=== PATIENT | female | born 1965 | race Caucasian/White ===

== ENCOUNTER 2016-04-13 14:07 | Emergency (ER) | payer BC, SELFPAY | END 2016-04-13 15:20 | disposition left against medical advice (07) | LOC: BURERS 14:07 | DX: Z53.21 Procedure and treatment not carried out due to patient leaving prior to being seen by health care provider (principal) ==

== ENCOUNTER 2016-06-25 11:16 | Emergency (ER) | payer SELFPAY ==
--- NOTE | 2016-06-25 17:58 | RAD ---
RIGHT FOOT 4 VIEWS: Date: 06/25/16 A total of four views were provided. No fracture or periosteal reaction was seen. All bones appeared intact. A tiny calcaneal spur was merino ggested. IMPRESSION: No acute bony finding. POS: HOME
== END 2016-06-25 11:56 | disposition home or self-care (01) ==
LOC: BURERS 11:16
DX: S90.31XA Contusion of right foot, initial encounter (principal); I10 Essential (primary) hypertension; F41.9 Anxiety disorder, unspecified; Z79.899 Other long term (current) drug therapy; W55.19XA Other contact with horse, initial encounter

== ENCOUNTER 2016-10-22 08:26 | Emergency (ER) | payer SELFPAY ==
[2016-10-22 08:55] LABS: #Basophils 0.1 thou/uL (0.0-0.2); #Eosinphils 0.2 thou/uL (0.0-0.7); #Lymphocytes 1.7 thou/uL (1.20-3.40); #Monocytes 0.4 thou/uL (0.11-0.59); %Eosinophils 2.8 % (0.0-10.0); %Lymphocytes 23.1 % (21.0-51.0); %Monocytes 5.6 % (0.0-10.0); %Neutrophils 67.6 % (42.0-75.0); Hemoglobin 14.3 g/dL (12.0-16.0); Mean Corpuscular HGB CONC 33.8 g/dL (32.0-36.0); Mean Corpuscular Hemoglobin 31.1 pg (27.0-31.0); Mean Corpuscular Volume 92.1 fl (81.0-99.0); Mean Platelet Volume 10.7 fL (7.4-10.4); Platelet Count 215 thou/uL (130-400); RBC Distribution Width 11.6 % (11.5-14.5); White Blood Cell (WBC) Count 7.3 thou/uL (4.8-10.8)
[2016-10-22 09:11] LABS: ALT (SGPT) 9 U/L (8-55); AST (SGOT) 13 U/L (5-34); Albumin 4.3 g/dL (3.5-5.0); Alkaline Phosphatase 68 U/L (40-150); Anion Gap 13 mmol/L (10-20); BUN (Urea Nitrogen) 17 mg/dL (9.8-20.1); Bilirubin, Total 0.5 mg/dL (0.2-1.2); CK (CPK) 59 U/L (29-168); Calc. Creatinine Clearance 0 mL/min (70-130); Calcium 9.4 mg/dL (7.8-10.44); Carbon Dioxide 23 mmol/L (22-29); Chloride 108 mmol/L (98-107); Estimated GFR-MDRD 72; Globulin 2.7 g/dL (2.4-3.5); Glucose 103 mg/dL (70-105); Lipase 33 U/L (8-78); Potassium 4.3 mmol/L (3.5-5.1); Sodium 140 mmol/L (136-145)
[2016-10-22 09:13] LABS: CKMB 0.9 ng/mL (0-6.6); Troponin I Less than 0.010 ng/mL (< 0.028)
[2016-10-22] MEDS ORDERED: HYDROcodone/Acetaminophen 10/325 mg Tablet ONE (09:13)
--- NOTE | 2016-10-22 11:50 | RAD ---
PORTABLE CHEST: Date: 10-22-16 An AP portable film at 0841 is compared with a 06-21-09 study. FINDINGS: The heart size is unchanged. There is no vascular congestion, edema, or pleural effusion. The lungs are clear. The mediastinum is unremarkable. IMPRESSION: No acute thoracic finding. POS: HOME
== END 2016-10-22 10:21 | disposition home or self-care (01) ==
LOC: BURERS 08:26
DX: S13.4XXA Sprain of ligaments of cervical spine, initial encounter (principal); I10 Essential (primary) hypertension; F41.9 Anxiety disorder, unspecified; F32.9 Major depressive disorder, single episode, unspecified; Z87.891 Personal history of nicotine dependence; Z79.899 Other long term (current) drug therapy; X58.XXXA Exposure to other specified factors, initial encounter
CPT/HCPCS: 71010; 80053; 82553; 83690; 84484; 85025; 93005; 94760

== ENCOUNTER 2016-10-22 19:30 | Emergency (ER) | payer SELFPAY ==
[2016-10-22] MEDS ORDERED: Prochlorperazine 10 MG/2 ML VIAL ONE (20:03)
[2016-10-22] MEDS ORDERED: Ondansetron HCl/PF 4 MG/2 ML Vial ONE (22:49)
== END 2016-10-22 23:12 | disposition home or self-care (01) ==
LOC: BURERS 19:30
DX: M43.6 Torticollis (principal); I10 Essential (primary) hypertension; I25.2 Old myocardial infarction; F32.9 Major depressive disorder, single episode, unspecified; F41.9 Anxiety disorder, unspecified; Z87.891 Personal history of nicotine dependence; Z79.899 Other long term (current) drug therapy; Z79.891 Long term (current) use of opiate analgesic
CPT/HCPCS: 96374; 96375; J0780; J2270; J2405

== ENCOUNTER 2017-04-05 08:22 | Emergency (ER) | payer SELFPAY ==
[2017-04-05] MEDS ORDERED: Ondansetron HCl/PF 4 MG/2 ML Vial ONE (08:55)
[2017-04-05] MEDS ORDERED: Famotidine In NaCl 20 mg/50 ml Premix Bag ONE (08:55)
[2017-04-05 09:05] LABS: #Basophils 0.1 thou/uL (0.0-0.2); #Lymphocytes 0.6 thou/uL (1.20-3.40); #Monocytes 0.6 thou/uL (0.11-0.59); #Neutrophils 7.7 thou/uL (1.40-6.50); %Basophils 1.3 % (0.0-1.0); %Lymphocytes 6.9 % (21.0-51.0); %Monocytes 6.7 % (0.0-10.0); Hemoglobin 13.7 g/dL (12.0-16.0); Mean Corpuscular Hemoglobin 30.8 pg (27.0-31.0); Mean Platelet Volume 7.6 fL (7.4-10.4); Platelet Count 234 thou/uL (130-400); Red Blood Cell (RBC) Count 4.43 mill/uL (4.20-5.40); White Blood Cell (WBC) Count 9.1 thou/uL (4.8-10.8)
[2017-04-05 09:16] LABS: ALT (SGPT) 22 U/L (8-55); AST (SGOT) 23 U/L (5-34); Albumin 4.3 g/dL (3.5-5.0); Alkaline Phosphatase 78 U/L (40-150); Anion Gap 16 mmol/L (10-20); BUN (Urea Nitrogen) 13 mg/dL (9.8-20.1); Bilirubin, Total 0.5 mg/dL (0.2-1.2); Calc. Creatinine Clearance 0 mL/min (70-130); Calcium 9.3 mg/dL (7.8-10.44); Carbon Dioxide 24 mmol/L (22-29); Chloride 102 mmol/L (98-107); Estimated GFR-MDRD 61; Globulin 3.1 g/dL (2.4-3.5); Glucose 116 mg/dL (70-105); Lipase 28 U/L (8-78); Potassium 3.6 mmol/L (3.5-5.1); Protein, Total 7.4 g/dL (6.0-8.3); Sodium 138 mmol/L (136-145)
[2017-04-05] MEDS ORDERED: Acetaminophen 325 MG TAB ONE (09:16)
[2017-04-05] MEDS ORDERED: Ibuprofen 200 MG TAB ONE (09:36)
== END 2017-04-05 09:41 | disposition home or self-care (01) ==
LOC: BURERS 08:22
DX: B34.9 Viral infection, unspecified (principal); I10 Essential (primary) hypertension; Z87.891 Personal history of nicotine dependence
CPT/HCPCS: 80053; 83690; 85025; 96365; 96375; J2405

== ENCOUNTER 2017-07-06 22:13 | Emergency (ER) | payer OTHER, SELFPAY ==
[2017-07-06] MEDS ORDERED: Ketorolac Tromethamine 60 MG/2 ML VIAL ONE (22:25)
[2017-07-06] MEDS ORDERED: Ondansetron ODT 4 MG TAB ONE (22:28)
--- NOTE | 2017-07-07 07:21 | RAD ---
LEFT RIBS WITH PA CHEST: DATE: 07/06/17. FINDINGS: Comparison is made with a 06/24/17 study done at [facility]. The heart size is stable. There is no congestion or pleural effusion. At most, there might be a lit tle linear atelectasis in the right base. Regarding the left ribs, no fracture or area of bony destr uction was seen. There is no pneumothorax. IMPRESSION: No acute finding. POS: HOME
== END 2017-07-06 23:10 | disposition home or self-care (01) ==
LOC: BURERS 22:13
DX: R07.89 Other chest pain (principal); I10 Essential (primary) hypertension; Z87.891 Personal history of nicotine dependence
CPT/HCPCS: 96372; J1885; Q0162

== ENCOUNTER 2018-08-21 09:44 | Emergency (ER) | payer BC, SELFPAY ==
[~2018-08-21 09:44] MED LIST: Iopamidol 370 76% 100 ML VIAL ONE
[2018-08-21] MEDS ORDERED: Ondansetron ODT 4 MG TAB ONE (10:10)
[2018-08-21] MEDS ORDERED: Lidocaine 1% PF 5 ML VIAL ONE (10:33)
[2018-08-21 10:36] LABS: Clarity Slightly Cloudy (Clear)
[2018-08-21 10:37] LABS: Bilirubin Small (Negative); Blood, Urine Moderate (Negative); Glucose, Urine (Dipstick) Negative (Negative); Leukocyte Moderate (Negative); Nitrite Negative (Negative); Protein, Urine (Dipstick) 30 mg/dL (Neg-Trace)
[2018-08-21 10:44] LABS: #Eosinphils 0.1 thou/uL (0.0-0.7); #Lymphocytes 1.3 thou/uL (1.20-3.40); #Monocytes 0.4 thou/uL (0.11-0.59); #Neutrophils 5.8 thou/uL (1.40-6.50); %Basophils 0.5 % (0.0-1.0); %Eosinophils 1.7 % (0.0-10.0); %Monocytes 5.4 % (0.0-10.0); %Neutrophils 75.4 % (42.0-75.0); Hemoglobin 13.3 g/dL (12.0-16.0); Mean Corpuscular HGB CONC 31.6 g/dL (32.0-36.0); Mean Corpuscular Hemoglobin 29.7 pg (27.0-31.0); Mean Platelet Volume 11.2 fL (7.4-10.4); Platelet Count 231 thou/uL (130-400); RBC Distribution Width 11.7 % (11.5-14.5); Red Blood Cell (RBC) Count 4.47 mill/uL (4.20-5.40); White Blood Cell (WBC) Count 7.6 thou/uL (4.8-10.8)
[2018-08-21] MEDS ORDERED: Fentanyl 100 MCG/2 ML VIAL ONE ×2 (10:44→11:08)
[2018-08-21 10:58] LABS: ALT (SGPT) 13 U/L (8-55); AST (SGOT) 12 U/L (5-34); Albumin 4.4 g/dL (3.5-5.0); Alkaline Phosphatase 62 U/L (40-150); Anion Gap 15 mmol/L (10-20); BUN (Urea Nitrogen) 11 mg/dL (9.8-20.1); Bilirubin, Total 0.7 mg/dL (0.2-1.2); Calc. Creatinine Clearance 0 mL/min (70-130); Calcium 9.6 mg/dL (7.8-10.44); Carbon Dioxide 24 mmol/L (22-29); Chloride 106 mmol/L (98-107); Estimated GFR-MDRD 61; Globulin 2.6 g/dL (2.4-3.5); Glucose 111 mg/dL (70-105); Lipase 57 U/L (8-78); Potassium 3.5 mmol/L (3.5-5.1); Sodium 141 mmol/L (136-145)
[2018-08-21 11:03] LABS: Bacteria/HPF 3+ HPF (None Seen); Crystals/HPF None Seen HPF (Negative); Hyaline Casts/LPF NONE SEEN LPF (0-3 Hyaline); Other Casts/LPF None Seen LPF (0-3 Hyaline); Oval Fat Bodies/HPF 1+ HPF (None Seen); Renal Epithelial None Seen HPF (0-3); Sperm/HPF None Seen HPF (None Seen); Squamous Epithelial 0-3 HPF (0-3); Transitional Epithelial NONE SEEN HPF (0-3); Trichomonas/HPF None Seen HPF (None Seen); Yeast-All Forms None Seen HPF (None Seen)
[2018-08-21] MEDS ORDERED: Phenazopyridine HCl 97.5 MG TABLET ONE (11:08)
[2018-08-21] MEDS ORDERED: Dicyclomine 20 MG TAB ONE (11:08)
[2018-08-21] MEDS ORDERED: Ketamine 50 MG/ML (10ML VIAL) ONE (11:30)
[2018-08-21] MEDS ORDERED: Ketorolac Tromethamine 30 MG/ML VIAL ONE (11:31)
[2018-08-21] MEDS ORDERED: Ondansetron PF 4 MG/2 ML Vial ONE (11:31)
--- NOTE | 2018-08-21 17:58 | CT ---
CT ABDOMEN AND PELVIS WITH CONTRAST: 08/21/[address] of the abdomen and pelvis was done for evaluation of abdominal pain. IV contrast was given but oral was withheld. There is a history of recent gastric surgery. The lung bases are clear except for some dependent atelectasis. The spleen was generous in size but s till upper normal at 13.4 cm in length. Some of the intrahepatic bile ducts are a little prominent b ut probably still acceptable given that this is a post cholecystectomy patient. The pancreas and adre nal glands and aorta all appear normal. There is mild right hydronephrosis and hydroureter down to the low pelvic level. There is a 3 mm calc ification in or near the left ureter. Given the mild hydronephrosis, I suspect it is in it and this i s a small distal ureteral calculus. It is about 2 to 3 cm shy of the UV junction. The kidneys otherwi se are unremarkable. The bowel shows no distention, bowel wall thickening or other inflammatory changes. No free air or fr ee fluid was seen in the upper abdomen. CT of the pelvis was remarkable for the small calcification noted. Sigmoid diverticulosis without div erticulitis is seen. A trace of fluid is seen in the pelvis on the right that could be related to her being recently postop. IMPRESSION: 1. Mild left hydronephrosis and hydroureter. This is probably due to a small 3 mm distal uretera l calculus a few centimeters shy of the left UVJ. 2. Sigmoid diverticulosis. 3. Trace of fluid in the pelvis, probably related to recent surgery. 4. Unremarkable appearance around the operative bed of the stomach. No acute findings here. 5. Spleen upper normal size. POS: HOME
== END 2018-08-21 12:10 | disposition short-term general hospital (02) ==
LOC: BURERS 09:44
DX: N13.2 Hydronephrosis with renal and ureteral calculous obstruction (principal); N39.0 Urinary tract infection, site not specified; Z87.891 Personal history of nicotine dependence
CPT/HCPCS: 36415; 51702; 74177; 80053; 81003; 81015; 83605; 83690; 85025; 87077; 87086; 87186; 96361; 96365; 96372; 96375; J1885; J1956; J2001; J2270; J2405; J3010; Q0162; Q9967

== ENCOUNTER 2019-07-15 22:24 | Emergency (ER) | payer BC, SELFPAY ==
[2019-07-15] MEDS ORDERED: Famotidine In NaCl 20 mg/50 ml Premix Bag ONE (23:19)
[2019-07-15] MEDS ORDERED: Ondansetron PF 4 MG/2 ML Vial ONE (23:19)
[2019-07-15] MEDS ORDERED: Fentanyl 100 MCG/2 ML VIAL ONE (23:19)
[2019-07-15 23:32] LABS: Bilirubin Negative (Negative); Blood, Urine Negative (Negative); Clarity Cloudy (Clear); Glucose, Urine (Dipstick) Negative (Negative); Leukocyte Trace (Negative); Nitrite Positive (Negative); Protein, Urine (Dipstick) Trace mg/dL (Neg-Trace); Urobilinogen 0.2 mg/dL (Less than 2)
[2019-07-15 23:35] LABS: #Basophils 0.1 thou/uL (0.0-0.2); #Eosinphils 0.4 thou/uL (0.0-0.7); #Lymphocytes 1.6 thou/uL (1.20-3.40); #Monocytes 0.4 thou/uL (0.11-0.59); #Neutrophils 3.3 thou/uL (1.40-6.50); %Basophils 0.9 % (0.0-1.0); %Eosinophils 7.1 % (0.0-10.0); %Lymphocytes 27.3 % (21.0-51.0); %Monocytes 7.5 % (0.0-10.0); %Neutrophils 57.2 % (42.0-75.0); Hemoglobin 12.4 g/dL (12.0-16.0); Mean Corpuscular Hemoglobin 30.4 pg (27.0-31.0); Mean Corpuscular Volume 95.1 fL (78.0-98.0); Mean Platelet Volume 10.8 fL (7.4-10.4); Platelet Count 160 thou/uL (130-400); RBC Distribution Width 11.4 % (11.5-14.5); Red Blood Cell (RBC) Count 4.07 mill/uL (4.20-5.40); White Blood Cell (WBC) Count 5.8 thou/uL (4.8-10.8)
[2019-07-15 23:48] LABS: ALT (SGPT) 13 U/L (8-55); AST (SGOT) 14 U/L (5-34); Albumin 4.2 g/dL (3.5-5.0); Alkaline Phosphatase 58 U/L (40-110); Anion Gap 14 mmol/L (10-20); BUN (Urea Nitrogen) 15 mg/dL (9.8-20.1); Bilirubin, Total 0.5 mg/dL (0.2-1.2); Calc. Creatinine Clearance 0 mL/min (70-130); Calcium 9.2 mg/dL (7.8-10.44); Carbon Dioxide 27 mmol/L (22-29); Chloride 106 mmol/L (98-107); Estimated GFR-MDRD 68; Glucose 84 mg/dL (70-105); Lipase 32 U/L (8-78); Potassium 3.7 mmol/L (3.5-5.1); Protein, Total 6.2 g/dL (6.0-8.3); Sodium 143 mmol/L (136-145)
[2019-07-15 23:56] LABS: Bacteria/HPF 3+ HPF (None Seen); Calcium Oxalate Crystals 1+ HPF (None Seen); RBC/HPF 0-3 HPF (0-3); Squamous Epithelial 0-3 HPF (0-3); WBC/HPF 0-3 HPF (0-3)
--- NOTE | 2019-07-16 07:49 | CT ---
PRELIMINARY REPORT/[facility]/EMERGENCY AFTER HOURS PROCEDURE: EXAM: CT Abdomen and Pelvis with Intravenous Contrast CLINICAL HISTORY: PT HX OF GASTRIC BYPASS X 11MONTHS AGO, ABD PAIN, PT HAS HX OF GERD, PT HAS NORMAL LABS, PT HAS CONST IPATION TECHNIQUE: Axial computed tomography images of the abdomen and pelvis with intravenous contrast. CONTRAST: With; iso 370 95ml COMPARISON: None provided. FINDINGS: LUNG BASES: No basilar airspace consolidation or pleural effusion. LIVER: Unremarkable. GALLBLADDER AND BILE DUCTS: Cholecystectomy clips in the gallbladder fossa. No ductal dilation. PANCREAS: Unremarkable. SPLEEN: Unremarkable. ADRENAL GLANDS: Unremarkable. KIDNEYS, URETERS, AND BLADDER: Unremarkable. No hydronephrosis or nephrolithiasis. No ureteral or bladder calculi. STOMACH AND BOWEL: Seizures along the stomach and proximal small bowel. No obstruction. Wall thickening of multiple sm all bowel loops including the distal small bowel with adjacent fat stranding. No CT evidence of colit is or acute diverticulitis. Colonic diverticulosis. APPENDIX: No CT evidence for appendicitis. PERITONEUM: Small amount of free fluid in the pelvis. No free air. LYMPH NODES: No lymphadenopathy. REPRODUCTIVE: The uterus and ovaries are absent. VASCULATURE: No aortic aneurysm. BONES: No fracture or suspicious osseous abnormality. Multilevel degenerative disease. 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 ABDOMINAL WALL AND SOFT TISSUES: Unremarkable. IMPRESSION: Wall thickening of the multiple small bowel loops including the distal small bowel with adjacent fat stranding concerning for an infectious or inflammatory enteritis. Small amount of nonspecific free fluid in the pelvis. Colonic diverticulosis with no evidence of diverticulitis. Postsurgical changes related to a prior gastric bypass. ELECTRONICALLY SIGNED BY: Tariq Verdin MD July 16, 2019 12:27:44 AM CDT This report is intended for review by the ordering physician only, in accordance of law. If you recei ve this report in error, please call [facility] at [phone]. FINAL REPORT CT ABDOMEN AND PELVIS WITH CONTRAST: Date: 07/16/[address] of the abdomen and pelvis was done for evaluation of abdominal pain. The lung bases are clear. The liver, spleen, and pancreas show no space-occupying disease. There has been a prior cholecystectomy. The common bile duct is borderline in size measuring about 1.2 cm in [facility]. Normally, 1.0 cm is considered the upper normal in a post cholecystectomy patient. Some of the i ntrahepatic ducts are somewhat prominent in size, but the bile duct appears to go all the way to the duodenum without stoppage. The kidneys and adrenal glands were unremarkable. The abdominal aorta show ed no aneurysm. A prior gastric bypass is noted. No free air or free fluid is present. There is no distention of debbie l to suggest obstruction. The amount of fecal material in the colon is mildly increased at most, but not really remarkable. Some of the loops of small bowel seem to have orozco that are mildly thickened. This can sometimes be a sign of enteritis. CT of the pelvis shows no pelvic masses, fluid collections, or obvious inflammatory changes. No acute changes are seen in the lumbar spine. IMPRESSION: 1. Mild prominence of small bowel thickness. The possibility of enteritis should be considered. 2. Borderline size of common bile duct in this post cholecystectomy patient. Correlate with appropri ate labs. Report in agreement with preliminary reading by [facility]. POS: HOME
== END 2019-07-16 00:48 | disposition home or self-care (01) ==
LOC: BURERS 22:24
DX: A08.4 Viral intestinal infection, unspecified (principal); K57.30 Diverticulosis of large intestine without perforation or abscess without bleeding; R11.0 Nausea; Z87.891 Personal history of nicotine dependence
CPT/HCPCS: 74177; 80053; 81003; 81015; 83690; 85025; 87077; 87086; 87186; 94760; 96361; 96365; 96375; J2405; J3010; Q9967

== ENCOUNTER 2019-07-18 01:22 | Emergency (ER) | payer SELFPAY ==
[2019-07-18] MEDS ORDERED: Lidocaine Viscous Sol 2% 15 ml UD Cup ONE (02:03)
[2019-07-18] MEDS ORDERED: Mag-Al Plus 1200 MG/1200 MG/120 MG/30 ML UDCUP ONE (02:03)
[2019-07-18] MEDS ORDERED: Ondansetron ODT 4 MG TAB ONE (02:03)
[2019-07-18] MEDS ORDERED: Thiamine HCl 200 MG/2 ML VIAL ONE (02:29)
[2019-07-18] MEDS ORDERED: Ciprofloxacin Lactate/D5W 400 mg/200 ml Premix ONE (02:29)
[2019-07-18] MEDS ORDERED: Ondansetron PF 4 MG/2 ML Vial ONE (04:03)
== END 2019-07-18 05:20 | disposition home or self-care (01) ==
LOC: BURERS 01:22
DX: N39.0 Urinary tract infection, site not specified (principal); R19.7 Diarrhea, unspecified
CPT/HCPCS: 96365; 96367; 96375; J0744; J2405; J3411; Q0162

== ENCOUNTER 2019-10-18 14:52 | Emergency (ER) | payer OTHER, SELFPAY ==
[2019-10-18] MEDS ORDERED: Morphine 4 MG/ML VIAL ONE (14:57)
[2019-10-18] MEDS ORDERED: Morphine 2 MG/ML SYRINGE ONE (14:57)
[2019-10-18] MEDS ORDERED: Bacitracin 1 PK ONE (15:19)
== END 2019-10-18 15:39 | disposition home or self-care (01) ==
LOC: BURERS 14:52
DX: T23.102A Burn of first degree of left hand, unspecified site, initial encounter (principal); T31.0 Burns involving less than 10% of body surface; X17.XXXA Contact with hot engines, machinery and tools, initial encounter
CPT/HCPCS: 16000; 96372; J2270

== ENCOUNTER 2020-01-03 22:12 | Emergency (ER) | payer OTHER ==
[~2020-01-03 22:12] MED LIST changes: +Iopamidol 370 76% 50 ML VIAL FS ONE
[2020-01-03] MEDS ORDERED: Ondansetron PF 4 MG/2 ML Vial ONE ×2 (22:42→23:16)
[2020-01-03] MEDS ORDERED: Pantoprazole 40 MG VIAL ONE (22:51)
[2020-01-03 23:00] LABS: #Basophils 0.1 thou/uL (0.0-0.2); #Eosinphils 0.2 thou/uL (0.0-0.7); #Lymphocytes 1.6 thou/uL (1.20-3.40); #Monocytes 0.4 thou/uL (0.11-0.59); #Neutrophils 5.1 thou/uL (1.40-6.50); %Basophils 0.9 % (0.0-1.0); %Eosinophils 2.3 % (0.0-10.0); %Lymphocytes 21.5 % (21.0-51.0); %Monocytes 5.8 % (0.0-10.0); %Neutrophils 69.4 % (42.0-75.0); Mean Corpuscular Hemoglobin 31.8 pg (27.0-31.0); Mean Corpuscular Volume 96.4 fL (78.0-98.0); Mean Platelet Volume 9.6 fL (7.4-10.4); Platelet Count 201 thou/uL (130-400); Red Blood Cell (RBC) Count 4.09 mill/uL (4.20-5.40); White Blood Cell (WBC) Count 7.3 thou/uL (4.8-10.8)
[2020-01-03 23:15] LABS: ALT (SGPT) 27 U/L (8-55); AST (SGOT) 20 U/L (5-34); Alkaline Phosphatase 54 U/L (40-110); Anion Gap 15 mmol/L (10-20); BUN (Urea Nitrogen) 15 mg/dL (9.8-20.1); Bilirubin, Total 0.6 mg/dL (0.2-1.2); Calc. Creatinine Clearance 0 mL/min (70-130); Carbon Dioxide 26 mmol/L (22-29); Chloride 104 mmol/L (98-107); Globulin 2.1 g/dL (2.4-3.5); Glucose 111 mg/dL (70-105); Lipase 41 U/L (8-78); Potassium 3.9 mmol/L (3.5-5.1); Protein, Total 6.1 g/dL (6.0-8.3); Sodium 141 mmol/L (136-145)
[2020-01-03] MEDS ORDERED: Morphine 2 MG/ML SYRINGE ONE (23:59)
--- NOTE | 2020-01-04 07:05 | CT ---
PRELIMINARY REPORT/[facility]/EMERGENCY AFTER HOURS PROCEDURE: EXAM: CT Abdomen and Pelvis with Intravenous Contrast CLINICAL HISTORY: ABD PAIN, N/V THAT STARTED TODAY, PT HAS HX OF GASTRIC BYPASS TECHNIQUE: Axial computed tomography images of the abdomen and pelvis with intravenous contrast. CONTRAST: With; ISO 370, 100mL COMPARISON: 07/16/2019 FINDINGS: LUNG BASES: No basilar airspace consolidation or pleural effusion. LIVER: Unremarkable. GALLBLADDER AND BILE DUCTS: Unremarkable. No calcified stone. No ductal dilation. PANCREAS: Unremarkable. SPLEEN: Unremarkable. ADRENAL GLANDS: Unremarkable. KIDNEYS, URETERS, AND BLADDER: Unremarkable. No hydronephrosis or nephrolithiasis. No ureteral or bladder calculi. STOMACH AND BOWEL: There are postoperative changes of gastric bypass. There is significant distention of the efferent l oop consistent with obstruction. There is considerable fecal content within the distended small debbie l. There is a general transition zone in the left mid abdomen. There is diverticulosis. APPENDIX: No CT evidence for appendicitis. PERITONEUM: No free fluid. No free air. LYMPH NODES: No lymphadenopathy. REPRODUCTIVE: Unremarkable as visualized. VASCULATURE: No aortic aneurysm. BONES: No fracture or suspicious osseous abnormality. ABDOMINAL WALL AND SOFT TISSUES: Unremarkable. IMPRESSION: Postoperative changes of gastric bypass with obstruction of the efferent loop ELECTRONICALLY SIGNED BY: Rossana Kruger D.O. Jan 04, 2020 12:20:41 AM DIETITIAN ASSISTANT This report is intended for review by the ordering physician only, in accordance of law. If you recei ve this report in error, please call [facility] at [phone]. FINAL REPORT CT ABDOMEN AND PELVIS WITH CONTRAST: Date: 01/03/[address] of the abdomen and pelvis was done with IV contrast for evaluation of nausea, vomiting, and pain in this patient who has had a prior gastric bypass. Comparison is made with the prior CT dated 07/16/2019. Today's exam is significant markedly distended loops of proximal small bowel beyond the gastric bypas s. Some are measuring up to 4.0 cm in width and appear to have fecal material within them. The bowel remains dilated to about the left mid abdominal region and then transitions to a normal sized small b owel and colon beyond that. Diverticulosis is noted in the colon. There is some free fluid in the pel vis on the right side and there may be a small amount of free fluid in the upper abdomen and left upp er quadrant. Some of the distended bowel loops have edematous orozco. The lung bases are clear. The liver, spleen, and pancreas show no acute findings. A small cyst in the left lobe of the liver is unchanged. Prominence in size of the common bile duct is noted as usual in this patient. The is post cholecystectomy. The abdominal aorta is normal in caliber. No adrenal path ology seen. CT of the pelvis showed small amounts of free fluid, but no inflammatory changes or masses. IMPRESSION: Findings consistent with a mid-small bowel obstruction in the area efferent to the gastric bypass. Report in agreement with preliminary reading by [facility]. POS: HOME
== END 2020-01-04 01:25 | disposition short-term general hospital (02) ==
LOC: BURERS 22:12
DX: K56.609 Unspecified intestinal obstruction, unspecified as to partial versus complete obstruction (principal); R11.2 Nausea with vomiting, unspecified
CPT/HCPCS: 74177; 80053; 83690; 85025; 96374; 96375; 96376; C9113; J2270; J2405; Q9967

== ENCOUNTER 2020-05-13 00:03 | Emergency (ER) | payer OTHER ==
[2020-05-13] MEDS ORDERED: traMADol HCl 50 MG TAB ONE (00:30)
[2020-05-13] MEDS ORDERED: Acetaminophen 500 MG TAB ONE (00:30)
== END 2020-05-13 00:35 | disposition home or self-care (01) ==
LOC: BURERS 00:03
DX: S52.532A Colles' fracture of left radius, initial encounter for closed fracture (principal); S52.612A Displaced fracture of left ulna styloid process, initial encounter for closed fracture; Y04.2XXA Assault by strike against or bumped into by another person, initial encounter
CPT/HCPCS: 25600

== ENCOUNTER 2021-09-20 18:06 | Emergency (ER) | payer BC, OTHER | END 2021-09-20 19:05 | disposition home or self-care (01) | LOC: BURERS 18:06 | DX: S93.602A Unspecified sprain of left foot, initial encounter (principal); M02.372 Reiter's disease, left ankle and foot; X58.XXXA Exposure to other specified factors, initial encounter ==

== ENCOUNTER 2021-11-10 16:25 | Emergency (ER) | payer BC ==
[2021-11-10] MEDS ORDERED: Dexamethasone 10 MG/ML VIAL ONE (16:38)
[2021-11-10] MEDS ORDERED: diphenhydrAMINE 25 MG CAP ONE (16:38)
[2021-11-10] MEDS ORDERED: Dexamethasone 4 mg/ml Vial ONE (16:38)
== END 2021-11-10 17:34 | disposition home or self-care (01) ==
LOC: BURERS 16:25
DX: T63.461A Toxic effect of venom of wasps, accidental (unintentional), initial encounter (principal)
CPT/HCPCS: 96372; 99281; J1100

== ENCOUNTER 2022-06-27 23:21 | Emergency (ER) | payer OTHER, BC ==
[2022-06-27] MEDS ORDERED: Lidocaine 1% PF 5 ML VIAL ONE (23:34)
[2022-06-27] MEDS ORDERED: Lidocaine 1%/Epinephrine 1:100K 10 ML VIAL ONE (23:49)
[2022-06-28 00:38] LABS: #Eosinphils 0.1 thou/uL (0.0-0.7); #Lymphocytes 1.5 thou/uL (1.20-3.40); #Monocytes 0.4 thou/uL (0.11-0.59); #Neutrophils 3.2 thou/uL (1.40-6.50); %Basophils 0.7 % (0.0-1.0); %Eosinophils 2.2 % (0.0-10.0); %Lymphocytes 28.7 % (21.0-51.0); %Monocytes 7.9 % (0.0-10.0); %Neutrophils 60.4 % (42.0-75.0); Hemoglobin 14.6 g/dL (12.0-16.0); Mean Corpuscular HGB CONC 33.9 g/dL (32.0-36.0); Mean Corpuscular Hemoglobin 32.3 pg (27.0-31.0); Mean Corpuscular Volume 95.4 fl (78.0-98.0); Mean Platelet Volume 8.3 fL (7.4-10.4); Platelet Count 215 10x3/uL (130-400); RBC Distribution Width 11.3 % (11.5-14.5); Red Blood Cell (RBC) Count 4.53 mill/uL (4.20-5.40); White Blood Cell (WBC) Count 5.2 10x3/uL (4.8-10.8)
[2022-06-28] MEDS ORDERED: Boostrix 0.5 ML (Tdap) VIAL (>/=7 yrs of age) ONE (00:40)
[2022-06-28 00:41] LABS: INR-International Normal Ratio 0.8; Prothrombin Time 11.8 sec (12.0-14.7)
[2022-06-28 00:50] LABS: ALT (SGPT) 22 U/L (8-55); AST (SGOT) 24 U/L (5-34); Albumin 4.7 g/dL (3.5-5.0); Alkaline Phosphatase 64 U/L (40-110); Anion Gap 15 mmol/L (10-20); BUN (Urea Nitrogen) 13 mg/dL (9.8-20.1); Bilirubin, Total 0.4 mg/dL (0.2-1.2); Calc. Creatinine Clearance 0 mL/min (70-130); Calcium 9.2 mg/dL (7.8-10.44); Carbon Dioxide 25 mmol/L (22-29); Chloride 106 mmol/L (98-107); Estimated GFR 75; Glucose 114 mg/dL (70-105); Potassium 4.2 mmol/L (3.5-5.1); Protein, Total 7.7 g/dL (6.0-8.3); Sodium 142 mmol/L (136-145)
== END 2022-06-28 00:42 | disposition home or self-care (01) ==
LOC: BURERS 23:21
DX: S01.01XA Laceration without foreign body of scalp, initial encounter (principal); Z23 Encounter for immunization; W01.10XA Fall on same level from slipping, tripping and stumbling with subsequent striking against unspecified object, initial encounter
CPT/HCPCS: 12001; 36415; 70450; 80053; 85025; 85610; 90471; 90715

== ENCOUNTER 2022-07-04 17:38 | Emergency (ER) | payer BC | END 2022-07-04 18:07 | disposition home or self-care (01) | LOC: BURERS 17:38 | DX: S01.01XD Laceration without foreign body of scalp, subsequent encounter (principal); Z48.02 Encounter for removal of sutures ==

== ENCOUNTER 2022-09-25 00:40 | Emergency (ER) | payer BC ==
[2022-09-25] MEDS ORDERED: Acetaminophen 500 MG TAB ONE (01:09)
== END 2022-09-25 01:31 | disposition home or self-care (01) ==
LOC: BURERS 00:40
DX: S00.03XA Contusion of scalp, initial encounter (principal); W22.8XXA Striking against or struck by other objects, initial encounter
CPT/HCPCS: 99283

== ENCOUNTER 2022-10-21 22:49 | Emergency (ER) | payer BC | END 2022-10-21 23:48 | disposition home or self-care (01) | LOC: BURERS 22:49 | DX: S90.31XA Contusion of right foot, initial encounter (principal); W22.09XA Striking against other stationary object, initial encounter; Y92.009 Unspecified place in unspecified non-institutional (private) residence as the place of occurrence of the external cause ==

== ENCOUNTER 2023-07-18 22:47 | Emergency (ER) | payer OTHER | END 2023-07-18 23:15 | disposition home or self-care (01) | LOC: BURERS 22:47 | DX: H01.006 Unspecified blepharitis left eye, unspecified eyelid (principal) | CPT/HCPCS: 99283 ==

== ENCOUNTER 2023-09-26 13:06 | Emergency (ER) | payer OTHER ==
[2023-09-26] MEDS ORDERED: Ondansetron PF 4 MG/2 ML Vial ONE (13:28)
== END 2023-09-26 15:36 | disposition home or self-care (01) ==
LOC: BURERS 13:06
DX: A05.9 Bacterial foodborne intoxication, unspecified (principal)
CPT/HCPCS: 96361; 96374; J2405

== ENCOUNTER 2024-12-29 09:18 | Emergency (ER) | payer OTHER ==
[2024-12-29] MEDS ORDERED: predniSONE 20 MG TAB ONE (11:07)
== END 2024-12-29 11:18 | disposition home or self-care (01) ==
LOC: BURERS 09:18
DX: S29.011A Strain of muscle and tendon of front wall of thorax, initial encounter (principal); X58.XXXA Exposure to other specified factors, initial encounter
CPT/HCPCS: 71250; J7512